=== PATIENT | female | born 1960 | race Asian ===

== ENCOUNTER 2017-06-06 12:52 | Outpatient (CLI) | payer MEDICAID ==
--- NOTE | 2017-06-06 14:41 | Ultrasound Report ---
PELVIC ULTRASOUND: 06/06/2017 CLINICAL INDICATION: Abnormal uterine bleeding. TECHNIQUE: Transabdominal pelvic ultrasound performed for global evaluation. Transvaginal pelvic ultrasound performed for detailed evaluation. Real-time scanning performed and static images obtained. FINDINGS: The uterus is anteverted, measuring 6.6 x 4.3 x 3.5 cm. The endometrium is atrophic, measuring 2 mm. No focal myometrial lesion is seen. The right ovary is unremarkable, measuring 2.3 x 1.3 x 1.2 cm. The left ovary was not confidently identified on transabdominal or transvaginal imaging. No left adnexal mass is seen. No free fluid is present. IMPRESSION: ATROPHIC ENDOMETRIUM. TD: 06/06/2017 14:41
== END 2017-06-06 12:53 | disposition home or self-care (01) ==
LOC: DI 12:52
PROVIDERS: ATTEND Nurse Practitioner
DX: N85.8 Other specified noninflammatory disorders of uterus (principal)
CPT/HCPCS: 76830; 76856

== ENCOUNTER 2017-06-12 16:11 | Outpatient (CLI) | payer MEDICAID ==
--- NOTE | 2017-06-13 14:25 | Mammography Report ---
SCREENING DIGITAL MAMMOGRAM: 06/12/2017. CLINICAL INDICATION: A 56-year-old with history of benign biopsy for new baseline. FINDINGS: The location of the patient's previous mammograms is unknown. The breasts demonstrate heterogeneously dense fibroglandular parenchyma bilaterally. A few coarse, typically benign calcifications are present. A biopsy marker is noted in the right outer central breast. No suspicious masses, clustered microcalcifications, or regions of architectural distortion are identified. IMPRESSION: BENIGN FINDINGS. RECOMMENDATION: Routine annual screening unless otherwise clinically indicated. BIRADS CATEGORY 2 - BENIGN FINDINGS. STANDARD QUALIFYING STATEMENTS 1. This examination was reviewed with the aid of Computed Aided Detection (CAD). 2. A negative x-ray report should not delay biopsy if a dominant or clinically suspicious mass is present. More than 5% of cancers are not identified by x-ray. 3. Dense breasts may obscure an underlying neoplasm. TD: 06/13/2017 14:24 TAVIA
== END 2017-06-12 16:12 | disposition home or self-care (01) ==
LOC: DI 16:11
PROVIDERS: ATTEND Nurse Practitioner
DX: Z12.31 Encounter for screening mammogram for malignant neoplasm of breast (principal)
CPT/HCPCS: 77067